=== PATIENT | female | born 1945 | race Caucasian/White ===

== ENCOUNTER → 2017-05-06 | Outpatient (CLI) | payer OTHER | LOC: FIMAGING 08:05 | PROVIDERS: ATTEND Family Medicine | DX: I25.10 Atherosclerotic heart disease of native coronary artery without angina pectoris (principal); R91.1 Solitary pulmonary nodule; Z79.899 Other long term (current) drug therapy ==

== ENCOUNTER 2017-10-24 10:30 | Inpatient (IN) | payer OTHER ==
--- NOTE | 2017-11-27 18:35 | GHP ---
[f rep st] PREOP HISTORY AND PHYSICAL DATE OF ADMISSION: 11/28/2017 DATE OF SURGERY: 11/28/2017. HISTORY: Patient is a 72-year-old female who presents with right shoulder pain increasing over sever al years. She has night pain, limited motion. Her quality of life and activities of daily living ar e significantly impacted. She has attempted treatments including physical therapy with limited benef it. X-rays show severe right shoulder osteoarthritis. An MRI shows rotator cuff tendinosis with par tial-thickness tearing but no full-thickness tear, severe glenohumeral arthritis. There is, in additi on, a significant glenoid cyst. A CT scan further delineates this cyst. The bone stack issues of th e glenoid that dictate a specific metal-backed glenoid total shoulder system to accommodate the structural aspects of the scapula and glenoid. PAST MEDICAL HISTORY: She has never been a smoker. She has no known drug allergies. She has had a right thumb procedure at the [facility] joint. She has also had an eye scleral buckle. MEDICATIONS: Include hydrochlorothiazide 12.5 mg and venlafaxine 37.5 mg. REVIEW OF SYSTEMS: Positive for hypertension. PHYSICAL EXAM: GENERAL: Patient is a well-developed, well-nourished female in no apparent distress. HEAD AND NECK: Normocephalic, atraumatic. CHEST: Clear. CARDIOVASCULAR: Regular rate and rhyth m. ABDOMEN: Soft. NEUROLOGIC: She is alert and oriented x3. EXTREMITIES: Examination the right s houlder shows that she has about 140 degrees of forward flexion, 30 degrees of external rotation. Sh e has maintained reasonable strength of her rotator cuff. She does have crepitus palpable at that gl enohumeral joint. Her neurovascular exam is intact. IMPRESSION: Right shoulder osteoarthritis, partial thickness rotator cuff. Significant glenoid cyst . PLAN: Is a right total shoulder arthroplasty. I anticipate using humeral head bone for grafting of the glenoid and I have a component system that includes a metal-backed glenoid that has a central pos t to bypass and accommodate some of the bone loss in the glenoid. The benefits and risks of surgery have been reviewed with the patient including the risk of infection, damage to blood vessel or nerve, failure or loosening of components and need for revision, damage to blood vessel or nerve or disloca tion. Also, she has signed her consent form and wishes to proceed. /[id number]/MODL
[2017-11-28] MEDS ORDERED: ROPIVACAINE 0.2% 80 MG, EPINEPHrine 0.2 MG, KETOROLAC TROMETHAMINE 30 MG in SYRINGE 0 ML IU ONE (06:23)
[2017-11-28] MEDS ORDERED: TRANEXAMIC ACID 1,000 MG in NS (SYRINGE) 50 ML IV ONE (06:23)
[2017-11-28] MEDS ORDERED: BACITRACIN 50,000 UNITS/10 ML SYR IRR ONE (07:56)
[2017-11-28] MEDS ORDERED: POLYMYXIN B SULFATE 500,000 UNIT/10 ML SYR IRR ONE (07:57)
[2017-11-28] MEDS ORDERED: ceFAZolin 2 GM/SWFI 2 GM/20 ML SYR IVP ONE (09:04)
[2017-11-28] MEDS ORDERED: PREGABALIN 150 MG CAP PO ONE ×2 (09:04→09:15)
[2017-11-28] MEDS ORDERED: LIDOCAINE 1% 2 ML INJ ID PRN (09:04)
[2017-11-28] MEDS ORDERED: ACETAMINOPHEN 500 MG TAB PO ONE (09:04)
[2017-11-28] MEDS ORDERED: LR 1,000 ML IV ONE (09:04)
[2017-11-28] MEDS ORDERED: LR 1,000 ML IV SCH (09:04)
[2017-11-28] MEDS ORDERED: ceFAZolin 2 GM/SWFI 20 ML SYR IVP ONE (09:54)
--- NOTE | 2017-11-28 10:49 | PDHPUP ---
History & Physical Update H&P update statement: This history and physical update is based on an assessment of the patient which was completed after admission or registration (within 24 hours), but prior to the surgery/procedure. H&P update: H&P reviewed & patient examined
[2017-11-28] MEDS ORDERED: SCOPOLAMINE HYDROBROMIDE 1 MG/3 DAYS PATCH TD ONE (10:56)
--- NOTE | 2017-11-28 10:56 | PDANEPAE ---
ANE Past Medical History - Cardiovascular History Hx Hypertension: Yes Hx Arrhythmias: No Hx Chest Pain: No Hx Coronary Artery / Peripheral Vascular Disease: No Hx CHF / Valvular Disease: No Hx Palpitations: No Cardiovascular History Comment: OCCAS FLUTTERS - NON SPECIFIC. HOSPITALIZED A FEW YRS AGO FOR ELEVATED BP WHEN STARTED HCTZ - Pulmonary History Hx COPD: No Hx Asthma/Reactive Airway Disease: No Hx Recent Upper Respiratory Infection: No Hx Oxygen in Use at Home: No Hx Sleep Apnea: No Sleep Apnea Screening Result - Last Documented: Negative Pulmonary History Comment: ADULT ONSET ASTHMA ( WITH EXERCISE IN PAST) IMPROVED OVER RECENT YEARS - Neurologic History Hx Cerebrovascular Accident: No Hx Seizures: No Hx Dementia: No - Endocrine History Hx Diabetes: No - Renal History Hx Renal Disorders: No - Liver History Hx Hepatic Disorders: No - Neurological & Psychiatric Hx Hx Neurological and Psychiatric Disorders: No - Cancer History Hx Cancer: No - Congenital Disorder History Hx Congenital Disorders: No - GI History Hx Gastrointestinal Disorders: No - Other Health History Other Health History: NEG - Chronic Pain History Chronic Pain: Yes (R SHOULDER) - Surgical History Prior Surgeries: HAND SURG. RETINA DETACHMENT REPAIR ANE Review of Systems Review of Systems: - Exercise capacity METS (RN): 5 METS ANE Patient History - Allergies Allergies/Adverse Reactions: No Known Allergies Allergy (Verified 10/20/13 16:12) - Home Medications Home Medications: Ascorbic Acid [Vitamin C 500 mg (OTC)] 500 mg PO DAILY 10/20/13 [Last Taken ] Herbals/Supplements -Info Only 1 each PO AD 10/20/13 [Last Taken 11/21/17] Venlafaxine Xr [Effexor Xr 37.5MG (RX)] 37.5 mg PO DAILY 10/20/13 [Last Taken ] Cholecalciferol (Vitamin D3) [Vitamin D3] 2,000 unit PO DAILY 10/10/17 [Last Taken 11/21/17] Hydrochlorothiazide [HCTZ (*)] 12.5 mg PO DAILY 10/10/17 [Last Taken 11/27/17] - NPO status NPO Since - Liquids (Date): 11/28/17 NPO Since - Liquids (Time): 09:15 NPO Since - Solids (Date): 11/27/17 NPO Since - Solids (Time): 22:00 - Anes Hx Anes Hx: post operative nausea and vomiting - Smoking Hx Smoking Status: Never smoked - Family Anes Hx Family Hx Anesthesia Complications: NEG ANE Labs/Vital Signs - Labs Result Diagrams: 11/28/17 09:40 - Vital Signs Blood Pressure: 132/91 Heart Rate: 71 Respiratory Rate: 16 O2 Sat (%): 95 Height: 167.64 cm Weight: 81.647 kg ANE Physical Exam - Airway Mallampati Score: Class 2 - ASA Status ASA Status: II ANE Anesthesia Plan Anesthesia Plan: general endotracheal anesthesia, GA w LMA Regional Anesthesia: interscalene BP NB
[2017-11-28] MEDS ORDERED: MIDAZOLAM 2 MG/2 ML VIAL ONE (11:01)
[2017-11-28] MEDS ORDERED: PROPOFOL 200 MG/20 ML VIAL ONE (11:02)
[2017-11-28] MEDS ORDERED: fentaNYL 100 MCG/2 ML INJ ONE ×2 (11:02→15:01)
[2017-11-28] MEDS ORDERED: METOCLOPRAMIDE 10 MG/2 ML VIAL ONE (11:40)
[2017-11-28] MEDS ORDERED: ONDANSETRON 4 MG/2 ML VIAL ONE (11:41)
[2017-11-28] MEDS ORDERED: ONDANSETRON 4 MG/2 ML VIAL IVP PRN (13:58)
[2017-11-28] MEDS ORDERED: HYDROCODONE/APAP 5/325 TAB PO PRN (13:58)
[2017-11-28] MEDS ORDERED: TEMAZEPAM 15 MG CAP PO PRN (13:58)
[2017-11-28] MEDS ORDERED: ACETAMINOPHEN 325 MG TAB PO PRN (13:58)
[2017-11-28] MEDS ORDERED: ceFAZolin 2 GM/DEXTROSE 100 ML IV SCH (14:00)
[2017-11-28] MEDS ORDERED: D5W 1/2 NS W/ 20 KCl/L 1,000 ML IV SCH (14:00)
[2017-11-28] MEDS ORDERED: PROMETHAZINE HCL 25 MG/ML INJ IVP PRN (14:02)
[2017-11-28] MEDS ORDERED: LR 500 ML IV PRN (14:02)
[2017-11-28] MEDS ORDERED: HYDROmorphONE/DILAUDID 2 MG/ML INJ IVP PRN (14:02)
[2017-11-28] MEDS ORDERED: fentaNYL 100 MCG/2 ML INJ IVP PRN (14:02)
[2017-11-28] MEDS ORDERED: DEXAMETHASONE 4 MG/ML VIAL IVP PRN (14:02)
[2017-11-28] MEDS ORDERED: NALOXONE HCL 0.4 MG/ML INJ IVP PRN (14:02)
--- NOTE | 2017-11-28 14:04 | POSTANESTH ---
Post Anesthetic Evaluation Cardiovascular Status: Similar to Pre-Op Cond Respiratory Status: Normal, Stable Level of Consciousness/Mental Status: Can Participate in Eval Pain Control: Adequate, Prn Tx Ordered Nausea/Vomiting Control: Adequate, Prn Tx Ordered Complications Possibly Related to Anesthesia: None Noted
[2017-11-28] MEDS ORDERED: PROMETHAZINE HCL 25 MG/ML INJ ONE (14:09)
--- NOTE | 2017-11-28 15:27 | PDMN ---
Medical Necessity Medical necessity: [facility] S690 shoulder arthroplasty 1 day INPT only - R TSA
[2017-11-28] MEDS ORDERED: METOPROLOL TARTRATE 5 MG/5 ML INJ ONE (15:46)
[2017-11-28] MEDS ORDERED: hydrALAZINE 20 MG/ML VIAL ONE (16:03)
[2017-11-28] MEDS ORDERED: hydrALAZINE 20 MG/ML VIAL IVP PRN (16:22)
[2017-11-28] MEDS ORDERED: METOPROLOL TARTRATE 5 MG/5 ML INJ IVP ONE (16:30)
--- NOTE | 2017-11-28 16:50 | GOP ---
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 PROCEDURE PERFORMED: Right total shoulder arthroplasty using a metal-backed glenoid to accommodate t he bone deficiency in the glenoid. FINDINGS: SPECIMENS: Include the excised humeral head. ESTIMATED BLOOD LOSS: About 75 cc. INDICATIONS: The patient is a 72-year-old female who presents with typical symptoms for osteoarthrit is pain, limited motion, stiffness; her x-rays show [id number] osteoarthritis with degenerative lip ping. What is unique about this is she does have a 2 cm glenoid bone cyst, making the fixation of th e glenoid component more challenging. I have chosen a system by [employer] that utilizes a metal-backed gl enoid that can be fit with a post for press-fit bone ingrowth and also some screw fixation. DESCRIPTION OF PROCEDURE: The patient was taken to the operating room, placed supine on the operatin g table, and Dr. Roy provided a scalene block. She was then placed under general anesthetic with laryngeal mask ventilation. She received preoperative antibiotics as well as tranexamic acid. She w as placed in a semi beach-chair position using a Beach head setter, her body moved to the right si de, a roll beneath the right scapula, and the right shoulder and arm prepped and draped free in the u sual fashion. We used a thorough chlorhexidine prep. I used a deltopectoral approach to the shoulder. I identified the long head biceps tendon and tenode sed it just above the biceps and released it proximally, and later released the stump of the biceps i n the joint. I opened the joint through the subscapularis tendon and capsule anteriorly and carried this into the rotator interval. I could palpate the axillary nerve and while it was protected, I rel eased the inferior capsule. I then did a neck cut using a neck cutting guide in about 20-30 degrees of retroversion. I then addressed the glenoid, gently placing glenoid retractors and debriding the l abrum. I identified the very center of the glenoid and placed a guide pin perpendicular to its surface. I r eamed the surface smooth to remove any residual degenerative material or cartilage, down to subchondr al bone. I then reamed initially with a short reamer, then the medium size reamer for the central pe g, using the smaller diameter, and found that though this entered through the cyst, it did generate g ood surrounding bone stock for the porous ingrowth. I chose a small size glenoid component, I used dalia costa porous-coated glenoid peg that was fit to this component with a Branch taper fit, and this was prabha ed into place with good press fit. I then used a proximal and distal screw that both had good bone p urchase, to further support the implant. The poly liner was then snapped into this component. I then addressed the humeral side. I used initially an awl to gain access to the canal, and then bro ached up to a 20 diameter distal finned press-fit component, and this was fit with a proximal adapter , and this was hammered gently into place in the appropriate version. I then did trial reductions. I chose a 48 diameter head with a neutral location on the post. This was applied over the Branch tape r fit and the shoulder was reduced. It had excellent stability and good rotational range of motion. I passed sutures through the lesser tuberosity and then through the subscapularis tendon to provide a subscapularis tendon repair, and I closed the rotator cuff interval as well, all using #2 FiberWire . Antibiotic irrigation was used throughout. The wound was dry. I reapproximated the deltopectoral interval with 2-0 Monocryl, and then used a running 3-0 Quill suture in the subcuticular layer. I t hen applied glue, Telfa and a Tegaderm. The patient was placed in a sling. There were no complicati ons. DRAINS: No drains. COUNT: All counts were correct. DISPOSITION: The patient was taken in stable condition to recovery. My surgical technologist, Abelardo Connor, was a medical necessity for this total shoulder arthroplasty. /[id number]/MODL
[2017-11-28] MEDS: KETOROLAC 15 MG/1 ML SDV IVP SCH (17:41)
[2017-11-28] MEDS: ceFAZolin 2 GM/SWFI 2 GM/20 ML SYR IVP SCH (17:43)
[2017-11-28] MEDS: DOCUSATE SODIUM 100 MG CAP PO SCH (22:03)
[2017-11-29] MEDS: KETOROLAC 15 MG/1 ML SDV IVP SCH ×2 (00:45→05:45)
[2017-11-29] MEDS: ceFAZolin 2 GM/SWFI 2 GM/20 ML SYR IVP SCH (00:46)
[2017-11-29 07:59] VITALS: BP 135/77
[2017-11-29] MEDS: DOCUSATE SODIUM 100 MG CAP PO SCH (08:29)
[2017-11-29] MEDS ORDERED: CHOLECALCIFEROL VIT D3 2,000 UNITS TAB/CAP PO SCH (09:00)
[2017-11-29] MEDS ORDERED: ASCORBIC ACID 500 MG TAB PO SCH (09:00)
[2017-11-29] MEDS ORDERED: HYDROCHLOROTHIAZIDE 12.5 MG CAP PO SCH (09:00)
[2017-11-29] MEDS ORDERED: VENLAFAXINE XR 37.5 MG CAP PO SCH (09:00)
--- NOTE | 2017-11-29 09:58 | SOAPPROG ---
SOAP Progress Note Assessment/Plan: Assessment: POD #1 s/p R TSA Awake, alert, afebrile. Dressing clean and dry. Mild pain. NVI. Plan: D/c to home later today. 11/29/17 09:57 Objective: Vital Signs Temp Pulse Resp BP Pulse Ox 37.2 C 79 18 135/77 H 97 11/29/17 07:58 11/29/17 07:58 11/29/17 07:58 11/29/17 08:29 11/29/17 07:58 Laboratory Results 11/28/17 09:40 11/28/17 11/29/17 11/30/17 05:59 05:59 05:59 Intake Total 2290 Output Total 2350 Balance -60 ICD10 Worksheet Patient Problems: Problems Problem Status Onset Headache Acute
--- NOTE | 2017-11-29 12:27 | ASMTCMCOM ---
CM Note CM Note Notes: Pt s/p R TSA. PT/OT rec home. Pt dghtr will stay with her. No CM d/c needs identified. Date Signed: 11/29/2017 12:26 PM Electronically Signed By:CEE Farnsworth
== END 2017-11-29 11:59 | disposition home or self-care (01) | DRG 483 ==
LOC: F3N 11-28 08:51
PROVIDERS: ADMIT Orthopaedic Surgery; ATTEND Orthopaedic Surgery
PROC: 0RRJ0JZ Replacement of Right Shoulder Joint with Synthetic Substitute, Open Approach (ICD-10-PCS; principal; 2017-11-28 10:15)
DX: M19.011 Primary osteoarthritis, right shoulder (principal); M85.48 Solitary bone cyst, other site; I10 Essential (primary) hypertension
CPT/HCPCS: 97161-GP; 97166-GO; C1713; G8978-GP-CH; G8979-GP-CH; G8980-GP-CH; G8987-GO-CI; G8988-GO-CI; G8989-GO-CI; J0171; J0360; J0690; J1885; J2250; J2405; J2550; J2704; J2765; J2795; J3010

== ENCOUNTER → 2017-10-24 | Outpatient (CLI) | payer OTHER | LOC: CIMAGING 08:14 | PROVIDERS: ATTEND Orthopaedic Surgery | DX: M24.811 Other specific joint derangements of right shoulder, not elsewhere classified (principal); M85.611 Other cyst of bone, right shoulder | CPT/HCPCS: 73200-PO ==

== ENCOUNTER 2018-05-24 11:15 | Emergency (ER) | payer OTHER ==
--- NOTE | 2018-05-24 11:26 | EDPHY ---
H & P Time Seen by Provider: 05/24/18 11:25 HPI/ROS: CHIEF COMPLAINT: Tachycardia, hypoxia, abnormal EKG HISTORY OF PRESENT ILLNESS: Patient was sent over to the emergency department by anesthesia after cataract surgery. Apparently after surgery she was tachycardic and hypoxic, had an EKG which showed new T-wave inversions in inferior leads. Here the patient says she feels fine. REVIEW OF SYSTEMS: Eye: Metal shield over her right eye, otherwise normal. ENT: no sore throat Cardiac: no chest pain or syncope. Has had intermittent elevated heart rate for the last 10 years which spontaneously resolves Pulmonary: no cough or SOB Abdomen: no vomiting, diarrhea, abdominal pain Musculoskeletal: no back pain Skin: no rash Neuro: no headache Constitutional: no fever : no urinary symptoms A comprehensive 10 point review of systems is otherwise negative aside from elements mentioned in the history of present illness. PAST MEDICAL HISTORY: Includes cataract surgery, patient had LAD calcification noted on a CT scan last year. Social history: Here with her daughter. General Appearance: Alert and conversant, cooperative. Eyes: Right eye has a shield over it. ENT, Mouth: Normal mucous membranes. Respiratory: Normal respiratory effort, breath sounds equal, lungs are clear to auscultation. Cardiovascular: Regular rate and rhythm. Tachycardic. Gastrointestinal: Abdomen is soft and non tender. Neurological: Alert, face symmetric, normal motor and sensory in extremities. Skin: Warm and dry, no rashes. Musculoskeletal: No peripheral edema. No calf tenderness. Psychiatric: Not agitated. Emergency Department course/MDM: Plan for EKG, troponin, D-dimer and electrolytes and CBC. 1220: Dr. Hodges consulting for Cardiology. Patient's rate self converted to 64, he thinks it is likely a supraventricular tachy dysrhythmia and can be seen in the office. Repeat EKG shows sinus rhythm with borderline right axis and inferior T-wave changes have completely resolved. Recommendation of Cardiology is to discharge with BP follow-up. Patient states she is in agreement with the plan. Smoking Status: Never smoked Constitutional: Initial Vital Signs Temperature (C) 36.9 C 05/24/18 11:23 Heart Rate 126 H 05/24/18 11:23 Respiratory Rate 18 05/24/18 11:23 Blood Pressure 142/109 H 05/24/18 11:23 O2 Sat (%) 95 05/24/18 11:23 O2 Delivery Mode Room Air Allergies/Adverse Reactions: No Known Allergies Allergy (Verified 05/24/18 11:23) Home Medications: Medication Instructions Recorded Ascorbic Acid [Vitamin C 500 mg 500 mg PO DAILY 10/20/13 (*)] Herbals/Supplements -Info Only 1 each PO AD 10/20/13 Venlafaxine Xr [Effexor Xr 37.5MG 37.5 mg PO DAILY 10/20/13 (*)] Cholecalciferol (Vitamin D3) 2,000 unit PO DAILY 10/10/17 [Vitamin D3] Hydrochlorothiazide [HCTZ (*)] 12.5 mg PO DAILY 10/10/17 Acetaminophen [Tylenol 325mg (*)] 325 - 650 mg PO Q4HRS PRN tab 11/29/17 Hydrocodone/APAP 5/325 [[place] 1 - 2 tab PO Q3HRS PRN tab 11/29/17 5/325 (*)] Medical Decision Making - Diagnostics EKG Interpretation: 12-lead EKG interpreted by me; official reading is in computer system. My interpretation is sinus tachycardia rate 126 with inferior T-wave inversions which are new in 2 3 and F since previous dated 2013. - Data Points Laboratory Results: Laboratory Results 05/24/18 11:25 05/24/18 11:25 05/24/18 05/24/18 05/24/18 11:33 11:25 11:25 WBC RBC Hgb Hct MCV MCH MCHC RDW Plt Count MPV Neut % (Auto) Lymph % (Auto) [place] % (Auto) Eos % (Auto) Baso % (Auto) Nucleat RBC Rel Count Absolute Neuts (auto) Absolute Lymphs (auto) Absolute Monos (auto) Absolute Eos (auto) Absolute Basos (auto) Absolute Nucleated RBC Immature Gran % Immature Gran # D-Dimer 0.42 ug/mLFEU ug/mLFEU (0.00-0.50) Sodium 141 mEq/L mEq/L (135-145) Potassium 4.0 mEq/L mEq/L (3.3-5.0) Chloride 106 mEq/L mEq/L (97-110) Carbon Dioxide 27 mEq/l mEq/l (22-31) Anion Gap 8 mEq/L mEq/L (6-14) BUN 18 mg/dL mg/dL (7-23) Creatinine 0.8 mg/dL mg/dL (0.6-1.0) Estimated GFR > 60 Glucose 103 mg/dL H mg/dL (70-100) Calcium 9.6 mg/dL mg/dL (8.5-10.4) POC Troponin I 0.01 ng/mL ng/mL (0.00-0.08) 05/24/18 11:25 WBC 4.37 10^3/uL 10^3/uL (3.80-9.50) RBC 4.79 10^6/uL 10^6/uL (4.18-5.33) Hgb 14.0 g/dL g/dL (12.6-16.3) Hct 42.8 % % (38.0-47.0) MCV 89.4 fL fL (81.5-99.8) MCH 29.2 pg pg (27.9-34.1) MCHC 32.7 g/dL g/dL (32.4-36.7) RDW 13.8 % % (11.5-15.2) Plt Count 231 10^3/uL 10^3/uL (150-400) MPV 10.5 fL fL (8.7-11.7) Neut % (Auto) 44.7 % % (39.3-74.2) Lymph % (Auto) 41.9 % % (15.0-45.0) [place] % (Auto) 7.8 % % (4.5-13.0) Eos % (Auto) 4.3 % % (0.6-7.6) Baso % (Auto) 1.1 % % (0.3-1.7) Nucleat RBC Rel Count 0.0 % % (0.0-0.2) Absolute Neuts (auto) 1.95 10^3/uL 10^3/uL (1.70-6.50) Absolute Lymphs (auto) 1.83 10^3/uL 10^3/uL (1.00-3.00) Absolute Monos (auto) 0.34 10^3/uL 10^3/uL (0.30-0.80) Absolute Eos (auto) 0.19 10^3/uL 10^3/uL (0.03-0.40) Absolute Basos (auto) 0.05 10^3/uL 10^3/uL (0.02-0.10) Absolute Nucleated RBC 0.00 10^3/uL 10^3/uL (0-0.01) Immature Gran % 0.2 % % (0.0-1.1) Immature Gran # 0.01 10^3/uL 10^3/uL (0.00-0.10) D-Dimer Sodium Potassium Chloride Carbon Dioxide Anion Gap BUN Creatinine Estimated GFR Glucose Calcium POC Troponin I Medications Given: Discontinued Medications Sodium Chloride (Ns) 1,000 mls @ 0 mls/hr IV EDNOW ONE; Wide Open PRN Reason: Protocol Stop: 05/24/18 11:47 Last Admin: 05/24/18 11:48 Dose: 1,000 mls Point of Care Test Results: Chemistry 05/24/18 11:33 POC Troponin I 0.01 ng/mL ng/mL (0.00-0.08) Departure - Departure Disposition: Home, Routine, Self-Care Clinical Impression: Tachyarrhythmia Condition: Good Instructions: Tachycardia (ED) Additional Instructions: followup with cardiology as discussed with Dr. Hodges Referrals: Stone Hodges MD [Medical Doctor] - As per Instructions
--- NOTE | 2018-05-24 11:35 | CPEKG ---
Test Reason : OPEN Blood Pressure : / mmHG Vent. Rate : 126 BPM Atrial Rate : 126 BPM P-R Int : 200 ms QRS Dur : 072 ms QT Int : 383 ms P-R-T Axes : 000 091 265 degrees QTc Int : 555 ms Sinus tachycardia Probable left atrial enlargement Probable anterior infarct, age indeterminate Abnormal T, consider ischemia, inferior leads Prolonged QT interval Confirmed by Enzo Simon ([id number]) on 05/24/2018 11:35:03 AM Referred By: Confirmed By:Enzo Simon
[2018-05-24 11:39] LABS: PLATELET COUNT 231 10^3/uL (150-400)
[2018-05-24] MEDS ORDERED: NS 1,000 ML IV ONE (11:46)
--- NOTE | 2018-05-24 12:46 | CPEKG ---
Test Reason : OPEN Blood Pressure : / mmHG Vent. Rate : 064 BPM Atrial Rate : 064 BPM P-R Int : 181 ms QRS Dur : 083 ms QT Int : 412 ms P-R-T Axes : 069 090 058 degrees QTc Int : 425 ms Sinus rhythm Borderline right axis deviation Confirmed by Enzo Simon ([id number]) on 05/24/2018 12:45:59 PM Referred By: Confirmed By:Enzo Simon
[2018-05-24 13:00] VITALS: BP 131/101
--- NOTE | 2018-05-24 13:05 | PDCONSULT ---
Trap Setter Note: CC: tachycardia Consult request from the ER HPI: Patient is a 72 y/o female with history of HTN and CAD (non critical, as noted on MSCT), with no history of HLP or DM, who presents to the ER at [facility] after cataract surgery whereupon elevated heart rates were noted with low oxygen sats. In the ER, when the patient was seen, initial heart rates were 120-130 bpm, and regular, with narrow complex arrhythmia. ECG was most concerning with T wave inversions to the inferior leads, and what appeared to be possible atrial flutter (sans "sawtooth pattern") or a long RP tachycardia (which heavily influenced the morphology of the T waves). In speaking with the patient , she was relatively asymptomatic. No chest pains or pressure, no PND or orthopnea. She did have an awareness of her heart rate "going fast", but no clear symptoms in association with the fast heart rates noted. Patient stated that she does, on occasion, note fast heart rates at home. No association with activity. Duration of the events is less than 20 minutes. Frequency of these events is less than once per month. Patient has been seen by cardiology in the past (prior to [place] with recommendations to start statins (given the CAD on the MSCT), but only for a short period of time. No follow up with cardiology since that visit has occurred. Patient with pending PCP visit in about one month (her annual check up). Spontaneous conversion to normal sinus rhythm was noted in the ER after a liter of normal saline was given. Blood pressure in the ER was relatively controlled (129/100 mm Hg) with heart rate, post conversion, to 65 bpm. Remainder of 12 point review of systems was unremarkable PMHx: (1) CAD (MSCT) (2) HTN (on medical therapy) (3) Uncertain HLP (patient was on statins for a finite period of time, then stopped therapy) (4) No DM SHx: No illicits, rare caffeine, no ETOH abuse, no tobacco FHx: Non contributory NKDA Home medications: (1) Triam/HCTZ for HTN Vitals as below GEN: awake and alert in NAD HEENT: NCAT with PERRLA, EOMI, no JVD SKIN: no rash or excoriation, no ecchymosis LUNG: CTA bilaterally without crackles, wheeze, or rales noted COR: RRR without m/r/g, normal S1S2, no S3 or S4 ABD: soft, NTND EXT: no c/c/e, with 2+ DP/PT, and RAD pulses Neuro: no focal deficits Labs: Laboratory Tests 05/24/18 05/24/18 05/24/18 11:25 11:25 11:25 WBC 4.37 Hgb 14.0 Hct 42.8 Plt Count 231 D-Dimer 0.42 Sodium 141 Potassium 4.0 Chloride 106 Carbon Dioxide 27 Anion Gap 8 BUN 18 Creatinine 0.8 POC Troponin I 05/24/18 11:33 WBC Hgb Hct Plt Count D-Dimer Sodium Potassium Chloride Carbon Dioxide Anion Gap BUN Creatinine POC Troponin I 0.01 ECG with what appears to be a long RP tachycardia. Telemetry with conversion back to normal sinus rhythm Assessment: I did call on EP for review of the ECG findings noted. Given spontaneous conversion to normal sinus rhythm, the patient can go home. EP to contact the patient for follow up in the outpatient setting in the coming weeks. Would consider resumption of statin therapy given the CAD as noted on MSCT as well as low dose ASA therapy (81 mg per day). Maintain follow up with PCP as scheduled (and would have cholesterol and LFT labs drawn at that time) Plan: Outpatient cardiology following (EP consult) given the tachyarrhythmia noted by ECG today. Discussion about resumption of statins given CAD, but would be of benefit to have cholesterol documentation with LFTs prior to starting this therapy. Patient was in agreement with these plans.
== END 2018-05-24 13:01 | disposition home or self-care (01) ==
LOC: EDUNIT#
DX: R00.0 Tachycardia, unspecified (principal); E86.9 Volume depletion, unspecified; R94.31 Abnormal electrocardiogram [ECG] [EKG]; R09.02 Hypoxemia; I25.10 Atherosclerotic heart disease of native coronary artery without angina pectoris; I10 Essential (primary) hypertension; Z98.890 Other specified postprocedural states; Z98.49 Cataract extraction status, unspecified eye
CPT/HCPCS: 84484-PO

== ENCOUNTER → 2018-07-28 | Outpatient (CLI) | payer OTHER | LOC: FIMAGING 10:53 | PROVIDERS: ATTEND Family Medicine | DX: Z13.820 Encounter for screening for osteoporosis (principal); M85.89 Other specified disorders of bone density and structure, multiple sites; Z78.0 Asymptomatic menopausal state ==